=== PATIENT | female | born 1970 | race Caucasian/White ===

== ENCOUNTER 2020-06-22 08:49 | Emergency (ER) | payer BC ==
[2020-06-22] MEDS ORDERED: ENDOCET 5-3251 EACH PO (12:17)
== END 2020-06-22 17:05 | disposition home or self-care (01) ==
LOC: ER1 08:49
DX: S82.831A Other fracture of upper and lower end of right fibula, initial encounter for closed fracture (principal); M79.671 Pain in right foot; W10.9XXA Fall (on) (from) unspecified stairs and steps, initial encounter; Y92.009 Unspecified place in unspecified non-institutional (private) residence as the place of occurrence of the external cause
CPT/HCPCS: 29515; 73610; 73630; 99283

== ENCOUNTER 2021-01-15 14:50 | Emergency (ER) | payer OTHER, BC ==
[~2021-01-15 14:50] MED LIST: ENDOCET 5-3251 EACH PO
[2021-01-15] MEDS ORDERED: IBU800 MG PO (18:32)
== END 2021-01-15 18:40 | disposition home or self-care (01) ==
LOC: ER1 14:50
DX: S16.1XXA Strain of muscle, fascia and tendon at neck level, initial encounter (principal); S46.912A Strain of unspecified muscle, fascia and tendon at shoulder and upper arm level, left arm, initial encounter; V49.40XA Driver injured in collision with unspecified motor vehicles in traffic accident, initial encounter; Y92.410 Unspecified street and highway as the place of occurrence of the external cause
CPT/HCPCS: 71046; 72125; 72128; 73030; 99284

== ENCOUNTER → 2021-08-07 | Outpatient (CLI) | payer BC, OTHER ==
[~2021-08-07] MED LIST changes: +IBU800 MG PO
== END ==
LOC: KOH-I 15:00
DX: M25.562 Pain in left knee (principal)
CPT/HCPCS: 73562